=== PATIENT | female | born 1980 | race Caucasian/White ===

== ENCOUNTER 2024-05-17 10:22 | Emergency (ER) | payer MEDICAID ==
[~2024-05-17] VITALS: Ht 180.3 cm; Wt 81.8 kg
[2024-05-17 10:35] VITALS: TEMP 97.1
[2024-05-17] MEDS ORDERED: IBUP-1492 PO (11:57)
[2024-05-17] MEDS: KETOROLAC TROMETHAMINE 30 MG/ML VIAL IM ONE (12:13)
[2024-05-17] MEDS: PredniSONE 20 MG TABLET PO ONE (12:13)
[2024-05-17 12:15] VITALS: BP 120/69; PULSE 75; RESP 16; O2SAT 96
== END 2024-05-17 12:40 | disposition home or self-care (01) ==
LOC: EMS 10:35
DX: M26.602 Left temporomandibular joint disorder, unspecified (principal); R68.84 Jaw pain
CPT/HCPCS: 99283; 96372; J1885; J7512